=== PATIENT | male | born 1965 | race Caucasian/White ===

== ENCOUNTER 2018-01-17 10:28 | Emergency (ER) | payer OTHER ==
--- NOTE | 2018-01-17 12:21 | RAD REPORT ---
EXAM DESCRIPTION: CT - Stone Protocol - 01/17/2018 12:05 pm CLINICAL HISTORY: Left-sided abdominal pain, left-sided flank pain COMPARISON: None. TECHNIQUE: Axial 5 mm thick images were obtained without oral or IV contrast. The [id number] span s the entirety of the system partially obscuring uppermost abdomen and lung bases. All CT scans are performed using dose optimization technique as appropriate and may include automated exposure control or mA/KV adjustment according to patient size. FINDINGS: Mild hydronephrosis of the pelvis, calices and proximal ureter on the left secondary to a 6 millimeter stone. When viewed on a KUB projection the stone is along the left lateral margin of the L3-4 disc space. More distally the ureter is decompressed. No other obstructing or nonobstructing ca lculi on the left. No hydronephrosis or calculus on the right. Left kidney is mildly edematous with m ild perinephric stranding. No suspicious renal masses. Isodense masses and pyelonephritis are not exc luded on a stone protocol CT scan. No urinary bladder suspicious finding. Imaged portions of the liver, spleen and pancreas show no suspicious findings on non-contrast imaging . No gallbladder or biliary tree abnormality identified. No significant adrenal finding. No suspicious bowel findings. No hernia, mass or bulky lymphadenopathy noted. No free air, free fluid or inflammatory stranding. No acute bony abnormality. IMPRESSION: Mild left-sided hydronephrosis secondary to a 6 millimeter proximal left ureter stone. When viewed from a KUB projection, the stone localizes to the left lateral margin L3-4 disc space. Isodense masses and pyelonephritis are not excluded on stone protocol technique.
[2018-01-17 12:27] LABS: Urine Blood 2+ (NEG); Urine Glucose NEGATIVE (NEG); Urine Protein NEGATIVE (NEG); Urine Specific Gravity 1.025 (1.005-1.030)
[2018-01-17 12:38] LABS: Potassium 4.3 mEq/L (3.6-5.0)
[2018-01-17 12:42] LABS: Urine Bacteria <20 /HPF (NONE SEEN); Urine Culture Reflex Order NOT NEEDED
[2018-01-17 12:44] LABS: Albumin 4.5 g/dL (3.2-5.5); Bilirubin Direct 0.2 mg/dL (0-0.2); Bilirubin Total 1.3 mg/dL (0.3-1.2); Protein, Total 7.4 g/dL (6.0-8.3)
[2018-01-17 13:00] LABS: Absolute Lymphocytes (CBC) 0.6 K/uL (0.7-4.9); Absolute Monocytes 0.4 K/uL (0.1-1.3); Absolute Neutrophil 8.8 K/uL (1.8-8.0); Basophils % 0.3 % (0-1.3); Eosinophils % 0.1 % (0-4.4); Hematocrit 47.7 % (39.6-49.0); MCV 89.4 fL (80-100); MPV 8.5 fL (7.6-11.3); RBC Red Blood Cell Count 5.33 M/uL (4.33-5.43)
--- NOTE | 2018-01-17 13:13 | ER ---
Nurse's Notes [facility] Name: Chris Thomas Age: 52 yrs Sex: Male : 1965 Arrival Date: 01/17/2018 Time: 10:32 Bed 12 Private MD: Diagnosis: Hydronephrosis with renal and ureteral calculous obstruction Presentation: 01/17 10:40 Presenting complaint: Patient states: 2 days ago, i started having L back pain and hj started becomes nausea; today it started throbbing again at work; denies injury to the area; denies radiating pain; denies fever and chills;. Transition of care: patient was not received from another setting of care. Onset of symptoms was January 17, 2018. Care prior to arrival: None. 10:40 Method Of Arrival: Ambulatory 10:40 Acuity: ALINE 3 hj 10:50 Initial Sepsis Screen: Does the patient meet any 2 criteria? No. Patient's initial iw sepsis screen is negative. Does the patient have a suspected source of infection? No. Patient's initial sepsis screen is negative. Triage Assessment: 10:42 General: Appears in no apparent distress. uncomfortable, Behavior is calm, cooperative, hj appropriate for age. Pain: Complains of pain in left low back and left mid back Pain currently is 6 out of 10 on a pain scale. Musculoskeletal: Circulation, motion, and sensation intact. Historical: - Allergies: 10:42 Celebrex; hj - Home Meds: 10:42 None [Active]; hj - PMHx: 10:42 None; hj - PSHx: 10:42 Hernia repair; hj - Immunization history:: Adult Immunizations unknown. - Social history:: Smoking status: . Screenin:30 Abuse screen: Denies threats or abuse. Denies injuries from another. Nutritional aj1 screening: No deficits noted. Tuberculosis screening: No symptoms or risk factors identified. 13:55 Fall Risk None identified. iw Assessment: 11:30 General: Appears in no apparent distress. uncomfortable, Behavior is calm, cooperative, aj1 appropriate for age. Pain: Complains of pain in left mid back and left low back Pain does not radiate. Neuro: Level of Consciousness is awake, alert, obeys commands, Oriented to person, place, time, situation, Speech is normal, Facial symmetry appears normal. Cardiovascular: Patient's skin is warm and dry. Respiratory: Airway is patent Respiratory effort is even, unlabored, Respiratory pattern is regular, symmetrical. GI: No signs and/or symptoms were reported involving the gastrointestinal system. : No signs and/or symptoms were reported regarding the genitourinary system. Denies burning with urination, urinary frequency, urgency. EENT: No signs and/or symptoms were reported regarding the EENT system. Derm: No signs and/or symptoms reported regarding the dermatologic system. Skin is pink, warm \T\ dry. normal. Musculoskeletal: No signs and/or symptoms reported regarding the musculoskeletal system. Circulation, motion, and sensation intact. 12:34 Reassessment: Patient appears in no apparent distress at this time. Patient and/or iw family updated on plan of care and expected duration. Pain level reassessed. Patient is alert, oriented x 3, equal unlabored respirations, skin warm/dry/pink. Vital Signs: 10:43 BP 128 / 88; Pulse 85; Resp 18; Temp 98.2(TE); Pulse Ox 99% on R/A; Weight 81.65 kg; hj Height 5 ft. 9 in. (175.26 cm); Pain 7/10; 10:43 Body Mass Index 26.58 (81.65 kg, 175.26 cm) ED Course: 10:32 Patient arrived in ED. mr 10:42 Triage completed. hj 10:43 Arm band placed on right wrist. hj 11:30 Christian Mays PA is PHCP. jr8 11:30 Lloyd Aldridge MD is Attending Physician. 8 11:30 Lucia Tavera, RN is Primary Nurse. aj1 11:30 Patient has correct armband on for positive identification. Bed in low position. Call aj1 light in reach. Side rails up X 1. 11:30 No provider procedures requiring assistance completed. aj1 11:45 Urine collected: clean catch specimen, albert colored. dh3 11:46 Initial lab(s) drawn, by me, sent to lab. Inserted saline lock: 20 gauge in left aj1 antecubital area, using aseptic technique. Blood collected. 12:05 CT Stone Protocol In Process Unspecified. EDMS 12:15 Report given to Jamila Anglin RN. aj1 12:31 Primary Nurse role handed off by Lucia Tavera, MARYLOU iw 12:31 Derrek, Sobeida, RN is Primary Nurse. iw 13:09 Oh Archer MD is Referral Physician. jr8 13:55 IV discontinued, intact, bleeding controlled, No redness/swelling at site. Pressure iw dressing applied. Administered Medications: No medications were administered Outcome: 13:12 Discharge ordered by . jr8 13:55 Discharged to home ambulatory. iw 13:55 Condition: good 13:55 Discharge instructions given to patient, Instructed on discharge instructions, follow up and referral plans. medication usage, Demonstrated understanding of instructions, follow-up care, medications, Prescriptions given X 3. 13:58 Patient left the ED. iw Signatures: Dispatcher [employer] EDMS Lucia Tavera RN RN aj1 Sandy Rahman mr Sobeida Anglin, RN RN iw Christian Mays PA PA jr8 Ceasar Jara RN RN Radha Govea 3 Corrections: (The following items were deleted from the chart) 10:44 10:43 Pulse 85bpm; Resp 18bpm; Pulse Ox 99% RA; Temp 98.2F Temporal; 81.65 kg; Height 5 hj ft. 9 in.; BMI: 26.5; Pain 7/10; hj
--- NOTE | 2018-01-17 13:13 | EDPHYS ---
Physician Documentation [facility] Name: Chris Thomas Age: 52 yrs Sex: Male : 1965 Arrival Date: 01/17/2018 Time: 10:32 Bed 12 Private MD: ED Physician Lloyd Aldridge HPI: 01/17 13:01 This 52 yrs old Male presents to ER via Ambulatory with complaints of Back jr8 Pain. 13:01 The patient presents with pain that is acute. jr8 13:02 The patient complains of pain in the left flank. The pain does not radiate. Onset: The jr8 symptoms/episode began/occurred acutely, 2 day(s) ago. Modifying factors: The symptoms are alleviated by nothing. the symptoms are aggravated by nothing. Associated signs and symptoms: The patient has no apparent associated signs or symptoms. Severity of pain: At its worst the pain was moderate in the emergency department the pain has improved moderately. The patient has not experienced similar symptoms in the past. The patient has not recently seen a physician. Historical: - Allergies: 10:42 Celebrex; hj - Home Meds: 10:42 None [Active]; hj - PMHx: 10:42 None; hj - PSHx: 10:42 Hernia repair; hj - Immunization history:: Adult Immunizations unknown. - Social history:: Smoking status: . ROS: 13:02 Eyes: Negative for injury, pain, redness, and discharge, ENT: Negative for injury, jr8 pain, and discharge, Neck: Negative for injury, pain, and swelling, Cardiovascular: Negative for chest pain, palpitations, and edema, Respiratory: Negative for shortness of breath, cough, wheezing, and pleuritic chest pain, Abdomen/GI: Negative for abdominal pain, nausea, vomiting, diarrhea, and constipation, MS/Extremity: Negative for injury and deformity, Skin: Negative for injury, rash, and discoloration, Neuro: Negative for headache, weakness, numbness, tingling, and seizure. 13:02 Back: Positive for flank pain. Exam: 13:02 Eyes: Pupils equal round and reactive to light, extra-ocular motions intact. Lids and jr8 lashes normal. Conjunctiva and sclera are non-icteric and not injected. Cornea within normal limits. Periorbital areas with no swelling, redness, or edema. ENT: Nares patent. No nasal discharge, no septal abnormalities noted. Tympanic membranes are normal and external auditory canals are clear. Oropharynx with no redness, swelling, or masses, exudates, or evidence of obstruction, uvula midline. Mucous membranes moist. Neck: Trachea midline, no thyromegaly or masses palpated, and no cervical lymphadenopathy. Supple, full range of motion without nuchal rigidity, or vertebral point tenderness. No Meningismus. Cardiovascular: Regular rate and rhythm with a normal S1 and S2. No gallops, murmurs, or rubs. Normal PMI, no JVD. No pulse deficits. Respiratory: Lungs have equal breath sounds bilaterally, clear to auscultation and percussion. No rales, rhonchi or wheezes noted. No increased work of breathing, no retractions or nasal flaring. Abdomen/GI: Soft, non-tender, with normal bowel sounds. No distension or tympany. No guarding or rebound. No evidence of tenderness throughout. Skin: Warm, dry with normal turgor. Normal color with no rashes, no lesions, and no evidence of cellulitis. MS/ Extremity: Pulses equal, no cyanosis. Neurovascular intact. Full, normal range of motion. Neuro: Awake and alert, GCS 15, oriented to person, place, time, and situation. Cranial nerves II-XII grossly intact. Motor strength 5/5 in all extremities. Sensory grossly intact. Cerebellar exam normal. Normal gait. 13:02 Back: pain, is absent, ROM is normal, normal spinal alignment noted, CVA tenderness, that is mild, is noted on the left, vertebral tenderness, is not appreciated. Vital Signs: 10:43 BP 128 / 88; Pulse 85; Resp 18; Temp 98.2(TE); Pulse Ox 99% on R/A; Weight 81.65 kg; hj Height 5 ft. 9 in. (175.26 cm); Pain 7/10; 10:43 Body Mass Index 26.58 (81.65 kg, 175.26 cm) MDM: 11:30 Patient medically screened. jr8 13:09 Data reviewed: vital signs, nurses notes, lab test result(s), radiologic studies, CT jr8 scan. Data interpreted: Pulse oximetry: on room air is 99 %. Interpretation: normal. Counseling: I had a detailed discussion with the patient and/or guardian regarding: the historical points, exam findings, and any diagnostic results supporting the discharge/admit diagnosis, lab results, radiology results, the need for outpatient follow up, a urologist, to return to the emergency department if symptoms worsen or persist or if there are any questions or concerns that arise at home. Physician consultation: Oh Archer MD was called at 13:09, was contacted at 13:09, regarding consult, patient's condition, and will see patient in office. 01/17 11:39 Order name: Urine Dipstick--Ancillary (enter results); Complete Time: 12:29 [facility] 01/17 11:53 Order name: Basic Metabolic Panel; Complete Time: 12:58 [facility] 01/17 11:53 Order name: CBC with Diff; Complete Time: 15:44 [facility] 01/17 11:53 Order name: Creatinine for Radiology; Complete Time: 12:58 [facility] 01/17 11:53 Order name: Hepatic Function; Complete Time: 12:58 [facility] 01/17 11:53 Order name: Urine Microscopic Only; Complete Time: 12:58 [facility] 01/17 11:53 Order name: IV Saline Lock; Complete Time: 12:04 [facility] 01/17 11:53 Order name: Labs collected and sent; Complete Time: 12:04 [facility] 01/17 11:53 Order name: Urine Dipstick-Ancillary (obtain specimen); Complete Time: 12:05 [facility] 01/17 11:53 Order name: CT Stone Protocol; Complete Time: 12:29 [facility] 01/17 13:01 Order name: CBC Smear Scan; Complete Time: 15:44 EDMS Administered Medications: No medications were administered Disposition: 01/17/18 13:12 Discharged to Home. Impression: Hydronephrosis with renal and ureteral calculous obstruction. - Condition is Stable. - Discharge Instructions: Kidney Stones, Hydronephrosis. - Prescriptions for Tylenol- Codeine #3 300-30 mg Oral Tablet - take 2 tablet by ORAL route every 6 hours As needed; 30 tablet. Zofran 4 mg Oral Tablet - take 1 tablet by ORAL route every 12 hours As needed; 20 tablet. Flomax 0.4 mg Oral Capsule, Sust. Release 24 hr - take 1 capsule by ORAL route once daily 1/2 hour following the same meal each day; 30 capsule. - Work release form, Medication Reconciliation Form, Thank You Letter, Antibiotic Education, Prescription Opioid Use form. - Follow up: Oh Archer MD; When: 2 - 3 days; Reason: Recheck today's complaints, Continuance of care, Re-evaluation by your physician. - Problem is new. - Symptoms have improved. Addendum: 01/20/2018 06:11 Co-signature as Attending Physician, Lloyd Aldridge MD Available for consultation at p s1 all times. . Signatures: Dispatcher [employer] Sobeida Ralph RN RN Christian Meza PA PA jr8 Ceasar Jara RN RN hj Singer, Phillip, MD MD ps1
[2018-01-17 13:54] LABS: Blood Morphology Comment NOT SEEN (NOT SEEN); Platelet Estimate ADEQ; Urine White Blood Cell Casts OK
== END 2018-01-17 13:58 | disposition home or self-care (01) ==
LOC: ER 10:28
DX: N13.2 Hydronephrosis with renal and ureteral calculous obstruction (principal); Z88.8 Allergy status to other drugs, medicaments and biological substances
CPT/HCPCS: 36415; 74176; 76377; 80048; 80076; 81003; 81015; 85025; 99284

== ENCOUNTER 2018-01-20 12:09 | Inpatient (IN) | payer OTHER ==
--- NOTE | 2018-01-20 14:24 | RAD REPORT ---
EXAM DESCRIPTION: RAD - Abdomen W Erect - 01/20/2018 1:43 pm CLINICAL HISTORY: Abdominal pain FINDINGS: The bowel gas pattern is unremarkable with large amount of stool throughout the colon. Air within the left upper quadrant near the left hemidiaphragm most likely lies within bowel. If the patient has clinical symptoms to suggest pneumoperitoneum then a decubitus abdominal plain film right -side-up would be recommended. The exam was discussed with Doe Tee in the emergency room prior to t his dictation A 5 millimeter calculus lies within the mid left ureter between the left transverse processes of L3 a nd L4
[2018-01-20 14:47] LABS: Absolute Lymphocytes (CBC) 0.7 K/uL (0.7-4.9); Absolute Monocytes 0.8 K/uL (0.1-1.3); Absolute Neutrophil 6.9 K/uL (1.8-8.0); Basophils % 0.6 % (0-1.3); Eosinophils % 0.9 % (0-4.4); Hematocrit 42.7 % (39.6-49.0); Lymphocytes % 8.5 % (15.3-44.8); MCH 30.4 pg (27.0-35.0); MCV 87.1 fL (80-100); MPV 7.7 fL (7.6-11.3); Monocytes % 9.5 % (3.3-12.3)
[2018-01-20 14:55] LABS: Potassium 3.9 mEq/L (3.6-5.0)
[2018-01-20] MEDS ORDERED: NA CHLORIDE 0.9% 1,000 ML ONE (15:49)
[2018-01-20 16:01] LABS: Urine Blood TRACE (NEG); Urine Glucose NEGATIVE (NEG); Urine Protein 2+ (NEG); Urine Specific Gravity 1.025 (1.005-1.030); Urine pH 6.5 (5.0-7.0)
[2018-01-20 16:12] LABS: Urine Amorphous Sediment 1+ /HPF (NONE SEEN); Urine Bacteria <20 /HPF (NONE SEEN); Urine Culture Reflex Order NOT NEEDED; Urine Mucus 2+ /HPF (NONE SEEN); Urine RBC <5 /HPF (NONE SEEN)
--- NOTE | 2018-01-20 18:06 | ER ---
Nurse's Notes [facility] Name: Chris Thomas Age: 52 yrs Sex: Male : 1965 Arrival Date: 01/20/2018 Time: 12:11 Bed 15 Private MD: Diagnosis: Calculus of ureter-Left;Acute kidney failure Presentation: 01/20 12:14 Presenting complaint: Patient states: I was dx with kidney stone on Monday and I la1 have been taking tylenol with codiene and it is making me constipated. Last BM monday. Transition of care: patient was not received from another setting of care. Onset of symptoms was January 20, 2018. Initial Sepsis Screen: Does the patient meet any 2 criteria? No. Patient's initial sepsis screen is negative. Does the patient have a suspected source of infection? No. Patient's initial sepsis screen is negative. Care prior to arrival: None. 12:14 Method Of Arrival: Ambulatory la1 12:14 Acuity: ALINE 3 la1 Historical: - Allergies: 12:15 Celebrex; la1 - PMHx: 12:15 Asthma; la1 - Immunization history:: Adult Immunizations up to date. - Social history:: Smoking status: Patient/guardian denies using tobacco. Screenin:18 Abuse screen: Denies threats or abuse. Denies injuries from another. Nutritional ph screening: No deficits noted. Tuberculosis screening: No symptoms or risk factors identified. Fall Risk None identified. Assessment: 12:45 General: Appears in no apparent distress. comfortable, slender, well groomed, Behavior ph is calm, cooperative, appropriate for age, Denies fever. Pain: Complains of pain in right lower quadrant and left lower quadrant. Neuro: Level of Consciousness is awake, alert, obeys commands, Oriented to person, place, time, situation. Cardiovascular: Capillary refill < 3 seconds Patient's skin is warm and dry. Respiratory: Airway is patent Respiratory effort is even, unlabored, Respiratory pattern is regular, symmetrical. GI: Abdomen is flat, non-distended, Bowel sounds present X 4 quads. Abdomen is tender to palpation in right lower quadrant and left lower quadrant Reports constipation, last BM on Mon. : Reports pain in suprapubic area Denies inability to void. Derm: Skin is intact, is fragile, Skin is pink, warm \T\ dry. Musculoskeletal: Circulation, motion, and sensation intact. Range of motion: intact in all extremities. 14:00 Reassessment: Patient appears in no apparent distress at this time. Patient and/or ph family updated on plan of care and expected duration. Pain level reassessed. Patient is alert, oriented x 3, equal unlabored respirations, skin warm/dry/pink. 15:16 Reassessment: Patient appears in no apparent distress at this time. Patient and/or ph family updated on plan of care and expected duration. Pain level reassessed. Patient is alert, oriented x 3, equal unlabored respirations, skin warm/dry/pink. Pt resting quietly, awaiting lab results, VSS, will continue to monitor. 15:52 Reassessment: Pt. ambulated to the restroom to try to urinate. rb1 17:00 Reassessment: Patient appears in no apparent distress at this time. Patient and/or ph family updated on plan of care and expected duration. Pain level reassessed. Patient is alert, oriented x 3, equal unlabored respirations, skin warm/dry/pink. Pt resting quietly, provider waiting to speak to urologist to determine if pt is to be admitted or will follow up in office. 17:52 Reassessment: Patient appears in no apparent distress at this time. No changes from ph previously documented assessment. Patient and/or family updated on plan of care and expected duration. Pain level reassessed. Patient is alert, oriented x 3, equal unlabored respirations, skin warm/dry/pink. 20:07 Reassessment: Patient appears in no apparent distress at this time. Patient and/or tl2 family updated on plan of care and expected duration. Pain level reassessed. Patient is alert, oriented x 3, equal unlabored respirations, skin warm/dry/pink. Awaiting room assignment. Hospitalist at bedside. General: Appears in no apparent distress. comfortable. 21:09 Reassessment: Patient appears in no apparent distress at this time. Patient and/or tl2 family updated on plan of care and expected duration. Pain level reassessed. Patient is alert, oriented x 3, equal unlabored respirations, skin warm/dry/pink. Pt stable and ready for transport to floor. Vital Signs: 12:15 BP 124 / 84; Pulse 105; Resp 16; Temp 98.0(TE); Pulse Ox 100% on R/A; Weight 81.65 kg; la1 Height 5 ft. 9 in. (175.26 cm); 13:00 BP 120 / 72; Pulse 94; Resp 16; Pulse Ox 98% on R/A; ph 14:00 BP 128 / 80; Pulse 87; Resp 18; Pulse Ox 97% on R/A; ph 15:17 BP 124 / 84; Pulse 80; Resp 16; Pulse Ox 97% on R/A; ph 16:45 BP 127 / 82; Pulse 78; Resp 18; Pulse Ox 99% on R/A; ph 18:10 BP 122 / 78; Pulse 81; Resp 18; Pulse Ox 97% on R/A; ph 20:07 BP 139 / 86; Pulse 87; Resp 18; Pulse Ox 99% on R/A; tl2 12:15 Body Mass Index 26.58 (81.65 kg, 175.26 cm) la1 ED Course: 12:11 Patient arrived in ED. as 12:15 Triage completed. la1 12:15 Arm band placed on left wrist. la1 12:19 Sha Tee PA is PHCP. cp 12:19 Lloyd Aldridge MD is Attending Physician. cp 12:25 Charlette Abrams, MARYLOU is Primary Nurse. ph 13:37 Patient moved to radiology via wheelchair. ag1 13:37 X-ray completed. Patient tolerated procedure well. ag1 13:37 XRAY Abdomen With Erect In Process Unspecified. EDMS 14:40 Initial lab(s) drawn, by id, sent to lab. Inserted saline lock: 20 gauge in right 3 antecubital area, using aseptic technique. Blood collected. 15:19 Patient has correct armband on for positive identification. Bed in low position. Call ph light in reach. Pulse ox on. NIBP on. 15:58 Urine collected: clean catch specimen, albert colored. 3 18:04 Essie Díaz MD is Hospitalizing Provider. cp 18:25 IV discontinued, intact, bleeding controlled, No redness/swelling at site. Pressure ph dressing applied. 19:35 Inserted saline lock: 20 gauge in left antecubital area, using aseptic technique. tl2 19:46 No provider procedures requiring assistance completed. Patient admitted, IV remains in ph place. 21:09 Patient admitted, IV remains in place. tl2 Administered Medications: 19:35 Drug: NS 0.9% 1000 ml Route: IV; Rate: 1 bolus; Site: left antecubital; tl2 21:10 Follow up: IV Status: Completed infusion; IV Intake: 1000ml tl2 19:35 Drug: NS 0.9% 1000 ml Route: IV; Rate: 125 ml/hr; Site: left antecubital; tl2 21:10 Follow up: IV Status: Infusion continued upon admission tl2 Intake: 21:10 IV: 1000ml; Total: 1000ml. tl2 Outcome: 18:05 Decision to Hospitalize by Provider. cp 21:09 Admitted to Med/surg accompanied by tech, via wheelchair, room 214, with chart, Report tl2 called to MARYLOU Sandra 21:09 Condition: stable 21:09 Discharge instructions given to patient, Instructed on the need for admit. 21:11 Patient left the ED. tl2 Signatures: Dispatcher [employer] EDMS Klarissa Nieves Lee RN RN la1 Charlette Abrams RN RN Evelyn Ortega 1 Sha Tee, JAMAL PA cp Gabriella Keane, RN RN rb1 Marcy Kam RN RN tl2 Radha Govea 3 Corrections: (The following items were deleted from the chart) 21:09 21:09 Reassessment: Patient appears in no apparent distress at this time. Patient tl2 and/or family updated on plan of care and expected duration. Pain level reassessed. Patient is alert, oriented x 3, equal unlabored respirations, skin warm/dry/pink. Pt verbalized understanding of discharge instructions, need for follow up and prescription usage Patient states feeling better. tl2
--- NOTE | 2018-01-20 18:06 | EDPHYS ---
Physician Documentation [facility] Name: Chris Thomas Age: 52 yrs Sex: Male : 1965 Arrival Date: 01/20/2018 Time: 12:11 Bed 15 Private MD: ED Physician Lloyd Aldridge HPI: 01/20 12:35 This 52 yrs old Male presents to ER via Ambulatory with complaints of cp Constipation. 12:35 The patient presents with constipation. Onset: The symptoms/episode began/occurred cp gradually, reports last BM 4 days ago. The symptoms do not radiate. Associated signs and symptoms: Pertinent negatives: nausea and vomiting, anorexia, blood in stools, diarrhea, dysuria, fever, testicular pain, flatulence . Historical: - Allergies: 12:15 Celebrex; la1 - PMHx: 12:15 Asthma; la1 - Immunization history:: Adult Immunizations up to date. - Social history:: Smoking status: Patient/guardian denies using tobacco. ROS: 12:40 Constitutional: Negative for body aches, chills, fever, poor PO intake. cp 12:40 Eyes: Negative for injury, pain, redness, and discharge. cp 12:40 ENT: Negative for drainage from ear(s), ear pain, sore throat, difficulty swallowing, difficulty handling secretions. 12:40 Cardiovascular: Negative for chest pain, edema, palpitations. 12:40 Respiratory: Negative for cough, shortness of breath, wheezing. 12:40 Abdomen/GI: Positive for abdominal pain, constipation, Negative for nausea, vomiting, diarrhea, anorexia, black/tarry stool, rectal bleeding, flatulence. 12:40 Back: Positive for flank pain, on the left. 12:40 : Negative for urinary symptoms. 12:40 Skin: Negative for cellulitis, rash. 12:40 Neuro: Negative for altered mental status, headache, weakness. 12:40 All other systems are negative. Exam: 12:48 Head/Face: Normocephalic, atraumatic. cp 12:48 Constitutional: The patient appears in no acute distress, alert, awake, non-diaphoretic, non-toxic, well developed, well nourished. 12:48 Eyes: Periorbital structures: appear normal, Pupils: equal, round, and reactive to light and accomodation, Extraocular movements: intact throughout, Conjunctiva: normal, no exudate, no injection, Sclera: no appreciated abnormality, Lids and lashes: appear normal, bilaterally. 12:48 ENT: External ear(s): are unremarkable, Ear canal(s): are normal, clear, TM's: bulging, is not appreciated, bilaterally, dullness, bilaterally, erythema, is not appreciated, bilaterally, Nose: is normal, Mouth: is normal, Posterior pharynx: is normal, airway is patent, no erythema, no exudate. 12:48 Neck: ROM/movement: is normal, is supple, without pain, no range of motions limitations, no nuchal rigidity. 12:48 Chest/axilla: Inspection: normal, Palpation: is normal, no crepitus, no tenderness. 12:48 Cardiovascular: Rate: tachycardic, Rhythm: regular. 12:48 Respiratory: the patient does not display signs of respiratory distress, Respirations: normal, no use of accessory muscles, no retractions, no splinting, no tachypnea, labored breathing, is not present, Breath sounds: are clear throughout, no decreased breath sounds, no stridor, no wheezing. 12:48 Abdomen/GI: Inspection: abdomen appears normal, Bowel sounds: active, Palpation: soft, in all quadrants, mild abdominal tenderness, in all quadrants, rebound tenderness, is not appreciated, voluntary guarding, is not appreciated, involuntary guarding, is not appreciated. 12:48 Back: pain, that is mild, of the left mid back, ROM is normal. Vital Signs: 12:15 BP 124 / 84; Pulse 105; Resp 16; Temp 98.0(TE); Pulse Ox 100% on R/A; Weight 81.65 kg; la1 Height 5 ft. 9 in. (175.26 cm); 13:00 BP 120 / 72; Pulse 94; Resp 16; Pulse Ox 98% on R/A; ph 14:00 BP 128 / 80; Pulse 87; Resp 18; Pulse Ox 97% on R/A; ph 15:17 BP 124 / 84; Pulse 80; Resp 16; Pulse Ox 97% on R/A; ph 16:45 BP 127 / 82; Pulse 78; Resp 18; Pulse Ox 99% on R/A; ph 18:10 BP 122 / 78; Pulse 81; Resp 18; Pulse Ox 97% on R/A; ph 20:07 BP 139 / 86; Pulse 87; Resp 18; Pulse Ox 99% on R/A; tl2 12:15 Body Mass Index 26.58 (81.65 kg, 175.26 cm) la1 MDM: 12:30 Patient medically screened. cp 14:30 Differential diagnosis: bowel obstruction, Ureterolithiasis, urinary tract infection, cp acute kidney failure, sepsis. 16:25 Data reviewed: vital signs, nurses notes, lab test result(s), radiologic studies, plain cp films, and as a result, I will admit patient. 16:29 Physician consultation: Oh Archer MD was called at 16:29, left message on cp voicemail. 17:55 Physician consultation: Oh Archer MD was called at 17:55, left msg on voicemail. cp 18:02 Physician consultation: Essie Díaz MD was called at 18:02, was contacted at 18:02, regarding admission, to the medical/surgical unit. patient's condition. 01/20 12:34 Order name: Urine Microscopic Only; Complete Time: 16:20 cp 01/20 16:20 Interpretation: Normal except: SQEPI 5-10. cp 01/20 14:28 Order name: CBC with Diff; Complete Time: 15:38 cp 01/20 12:34 Order name: XRAY Abdomen With Erect; Complete Time: 14:26 cp 01/20 14:28 Order name: BMP; Complete Time: 15:38 cp 01/20 16:01 Order name: Urine Dipstick--Ancillary (enter results); Complete Time: 16:20 eb 01/20 16:20 Interpretation: Normal except: UKET 1+; UBLD TRACE; UPROT 2+. cp 01/20 12:34 Order name: Urine Dipstick-Ancillary (obtain specimen); Complete Time: 15:58 cp Administered Medications: 19:35 Drug: NS 0.9% 1000 ml Route: IV; Rate: 1 bolus; Site: left antecubital; tl2 21:10 Follow up: IV Status: Completed infusion; IV Intake: 1000ml tl2 19:35 Drug: NS 0.9% 1000 ml Route: IV; Rate: 125 ml/hr; Site: left antecubital; tl2 21:10 Follow up: IV Status: Infusion continued upon admission tl2 Disposition: 04/21/18 18:05 Hospitalization ordered by Essie Díaz for Observation. Preliminary diagnosis are Calculus of ureter - Left, Acute kidney failure. - Bed requested for Telemetry/MedSurg (observation). - Status is Observation. tl2 - Condition is Stable. - Problem is new. - Symptoms have improved. UTI on Admission? No Signatures: Dispatcher [employer] EDMS Bhargavi Conner RN RN Anderson Chavez RN RN la1 Sha Tee PA PA cp Knox, Taylor, RN RN tl2 Destiny Lyon
[2018-01-20] MEDS ORDERED: ONDANSETRON 4 MG/2 ML VIAL IV PRN (20:14)
[2018-01-20] MEDS ORDERED: ACETAMINOPHEN 500 MG TAB PO PRN (20:14)
[2018-01-20] MEDS ORDERED: POLYETHYL GLY 3350 17 GM/DOSE PO ONE (21:18)
[2018-01-20] MEDS: NA CHLORIDE 0.9% 1,000 ML IV SCH (21:42)
[2018-01-21 05:13] LABS: Absolute Lymphocytes (CBC) 0.8 K/uL (0.7-4.9); Absolute Monocytes 0.8 K/uL (0.1-1.3); Absolute Neutrophil 5.5 K/uL (1.8-8.0); Basophils % 0.5 % (0-1.3); Eosinophils % 2.1 % (0-4.4); Hematocrit 40.3 % (39.6-49.0); Lymphocytes % 11.1 % (15.3-44.8); MCH 30.4 pg (27.0-35.0); MPV 8.1 fL (7.6-11.3); Monocytes % 11.5 % (3.3-12.3); RBC Red Blood Cell Count 4.58 M/uL (4.33-5.43)
[2018-01-21 05:35] LABS: Albumin 3.1 g/dL (3.2-5.5); Bilirubin Total 1.4 mg/dL (0.3-1.2); Magnesium 1.8 mg/dL (1.8-2.5); Potassium 3.8 mEq/L (3.6-5.0)
--- NOTE | 2018-01-21 05:53 | P.HP ---
Certification for Inpatient Patient admitted to: Observation With expected LOS: <2 Midnights Practitioner: I am a practitioner with admitting privileges, knowledge of patient current condition, hospital course, and medical plan of care. Services: Services provided to patient in accordance with Admission requirements found in Title 42 Section 412.3 of the Code of Federal Regulations Patient History Date of Service: 01/21/18 Reason for admission: cholelithiasis History of Present Illness: Mr Thomas is a 52 years old male with history of Asthma, who start about 4 days ago with left flank pain. The pain was recurrent, colicky like, 8-9/10 of intensity. He denied nausea or vomiting. On 01/17/18, he came to ED for evaluation. CT abdomen was remarkable for mild left-sided hydronephrosis secondary to a 6 millimeter proximal left ureter stone. The patient then was discharged home from ED with the instruction to see Urologist. Today he came back to ED because is still symptomatic, and also now is constipated, since he has been taking Tylonol 3 for pain. He denied any fever or chills. KUB still shows ureteral stone. Allergies celecoxib [From Celebrex] Allergy (Verified 01/20/18 21:24) Hives/Rash Home Medications: Albuterol Inhaler [Ventolin Inhaler*] 1 puff IH PRN PRN 01/20/18 Fluticasone/Salmeterol [Advair Hfa 230-21 Mcg Inhaler] 2 puff IH BID 01/20/18 - Past Medical/Surgical History Has patient received pneumonia vaccine in the past: No Diabetic: No -: ASTHMA -: APPENDECTOMY -: HERNIA REPAIR - Family History Family History: Reviewed- Non-Contributory - Social History Smoking Status: Never smoker Alcohol use: Yes CD- Drugs: No Caffeine use: Yes Place of Residence: Home Review of Systems 10-point ROS is otherwise unremarkable Physical Examination - Vital Signs Temperature: 98.8 F Blood Pressure: 133/67 Pulse: 75 Respirations: 18 Pulse Ox (%): 95 - Physical Exam General: Alert, In no apparent distress HEENT: Atraumatic, PERRLA, Mucous membr. moist/pink, EOMI, Sclerae nonicteric Neck: Supple, 2+ carotid pulse no bruit, No LAD, Without JVD or thyroid abnormality Respiratory: Clear to auscultation bilaterally, Normal air movement Cardiovascular: Regular rate/rhythm, Normal S1 S2 Gastrointestinal: Normal bowel sounds, Tenderness (left CVA tender to palpation. ) Musculoskeletal: No tenderness Integumentary: No rashes Neurological: Normal speech, Normal strength at 5/5 x4 extr, Normal tone, Normal affect Lymphatics: No axilla or inguinal lymphadenopathy - Studies Laboratory Data (last 24 hrs) 01/20/18 14:37: Sodium 135, Potassium 3.9, BUN 22 H, Creatinine 1.95 H, Glucose 102 01/20/18 14:37: WBC 8.5, Hgb 14.9, Hct 42.7, Plt Count 200 D Assessment and Plan - Problems (Diagnosis) (1) Hydronephrosis Current Visit: Yes Status: Acute Qualifiers: Hydronephrosis type: with ureteral calculous obstruction Qualified Code(s) : N13.2 - Hydronephrosis with renal and ureteral calculous obstruction (2) Ureteral stone Current Visit: Yes Status: Acute (3) Asthma Current Visit: Yes Status: Acute Qualifiers: Asthma severity: mild Asthma persistence: intermittent Asthma complication type: unspecified Qualified Code(s): J45.20 - Mild intermittent asthma, uncomplicated (4) Acute renal injury Current Visit: Yes Status: Acute - Plan Mr Thomas will be admitted to the hospital due to mild left hydronephrosis secondary to an ureteral stone. There is no signs of infection at the moment, normal WBC, no fever, however his renal function is abnormal. Will consult Dr Archer, will keep NPO in AM for possible cystoscopy. Will five stool softer for constipation. - Advance Directives Does patient have a Living Will: Yes Does patient have a Durable POA for Healthcare: Yes - Code Status/Comfort Care Code Status Assessed: Yes Code Status: Full Code
[2018-01-21] MEDS ORDERED: MAGNESIUM SULFATE 1 gm IVPB 1 GM/100 ML BAG IV ONE (06:01)
[2018-01-21] MEDS ORDERED: POTASSIUM 25 MEQ EFFERV TAB PO ONE (06:04)
[2018-01-21] MEDS ORDERED: KCL 20 MEQ/100 mL IVPB 20 MEQ/100 ML BAG IV SCH (07:00)
[2018-01-21] MEDS: NA CHLORIDE 0.9% 1,000 ML IV SCH ×3 (10:02→18:47)
[2018-01-21] MEDS ORDERED: MINERAL OIL ENEMA 135 ML BTL PR PRN (11:06)
[2018-01-21] MEDS: MAGNESIUM HYDROXIDE 8% 30 ML PO PRN ×2 (12:47→20:25)
--- NOTE | 2018-01-21 17:05 | PN ---
Subjective: Currently, the patient lying in bed. He looks comfortable. He continued to have some l eft flank pain. He is waiting for Urology to be seen. No nausea. No vomiting. No blood in the uri ne. No blood in the stool. Appetite is average. Objective: VITAL SIGNS: Currently vital signs; blood pressure is 133/67, respiratory rate 18, pulse 75, temperature 98.8, saturating 95% on room air. General: He is fully alert, oriented x3. He does not look in any distress. HEENT: Atraumatic, normocephalic. PERRLA. Oral mucosa is moist. Neck: Supple. No JVD. No carotid bruits. Chest: Clear to auscultation. Good air entry. Heart: Regular rate and rhythm. S1, S2 normal. No gallop or murmur. Abdomen: Soft, nontender. No masses. No hepatosplenomegaly. Positive bowel sounds. He does have slight tenderness in the left flank. Extremities: No clubbing, cyanosis, or edema. No calf tenderness. Neurologic: Grossly intact. Laboratory Data: Today, CBC within normal. CMP was normal except for kidney with a creatinine of 1. 79, BUN of 23. Total bilirubin 1.4. Albumin is 3.1. Assessment And Plan: 1.Left renal hydronephrosis with mild renal insufficiency. CAT scan showed ureteral stone obstructi on. Continue IV hydration, pain control. Urology consult is pending. 2.Ureteral stone, pending Urology consult evaluation. 3.Elevated liver function tests with bilirubin 1.4, borderline. We will recheck labs in a.m. 4.Renal insufficiency, improving. I will increase IV fluid to 150 cc/hour from 50 currently, that i s started in the emergency room. 5.Symptomatic treatment for pain. 6.Constipation improved with stool softeners. RUFINO/FORTUNATO Voice ID: [id number] Report ID: [id number]
--- NOTE | 2018-01-21 17:41 | CON ---
History Of Present Illness: This is a pleasant 52-year-old gentleman, who was in good state of health until last week. He started having left flank pain. He came to the emergency room on 01/17, was given Tylenol No. 3, sent home. He says since then he has been very constipated. The pain returned yesterday. He came back, which showed that the stone was approximately at the same location L3 to L4 on the left as seen on the CT scan on 01/17, also seen on the KUB on . He was admitted for renal colic and I was consulted. He has had no fevers , no pains. He does have a history of asthma. The patient is from [place]. He takes albuterol and fluticasone for his asthma. He did have some mild hydronephrosis on the left side from a 5 to 6 mm stone at the level of L3 to L4. Allergies: TO CELEBREX CAUSES HIVES AND RASH. Home Medications: Ventolin inhaler and fluticasone/salmeterol 2 puffs b.i.d. p.r.n. Past Medical History: The patient has no history of diabetes, positive history of asthma. Past Surgical History: Appendectomy, hernia repair. Family History: Noncontributory. Social History: Never smoked. Some alcohol use. No drug use. Some caffeine use. He resides at home. He is living by himself. His family is in [place]. 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 Review of Systems: Ten-point review of systems, otherwise unremarkable. Physical Examination: Vital Signs: Afebrile, stable. Latest vital signs showed temperature 98.8, pulse 75, respirations 18, blood pressure 133/67, 95% sats. HEENT: Atraumatic, normocephalic. Lungs: Clear. Heart: S1, S2. Abdomen: Soft, nontender. Exam: Both testicles were descended. He is circumcised. No lesions. Extremities: Normal range of motion. Laboratory Data: White count 8.4, H and H is 13.9 and 40.3, platelet 189,000. Chemistry; sodium 135, potassium 2.8, chloride 103, carbon dioxide 26, BUN 23, creatinine 1.8, when he was admitted was approximately 2.0. GFR estimated to be 40. Glucose 94, calcium 89, magnesium 1.8, total bilirubin 1.4. AST 15, ALT 15, alkaline phosphatase 74, total protein 6.0, albumin 3.1, globulin 2.9. Urine pH 6.5, specific gravity 1025, ketone 1+, blood trace, nitrite negative, esterase negative. Assessment And Plan: A pleasant 52-year-old gentleman with 5 to 6 mm stone between L3 to L4 on the left causing pain and hydronephrosis. He is admitted for pain control. He is very constipated from Tylenol No. 3. We are going to give him MOM around the clock and Fleet's enema around the clock. Continue to hydrate and ambulate and make him n.p.o. Monday night for surgery. Orders have been written for the consent. I gave him general information on alternatives and risks and he wishes to proceed. I told him to take 24 hours off after anesthesia before he starts driving or return to work. He can return to work approximately on . CARIDAD/FORTUNATO Voice ID: [id number] Report ID: [id number] AMELIA
[2018-01-21] MEDS: Morphine 2 MG/2 ML SYR IV PRN ×2 (19:04→22:49)
[2018-01-22] MEDS: NA CHLORIDE 0.9% 1,000 ML IV SCH ×4 (00:46→23:20)
[2018-01-22] MEDS: MAGNESIUM HYDROXIDE 8% 30 ML PO SCH ×4 (00:46→17:11)
[2018-01-22 04:55] LABS: Absolute Lymphocytes (CBC) 0.9 K/uL (0.7-4.9); Absolute Monocytes 0.9 K/uL (0.1-1.3); Absolute Neutrophil 5.6 K/uL (1.8-8.0); Basophils % 0.4 % (0-1.3); Eosinophils % 1.7 % (0-4.4); Hematocrit 39.4 % (39.6-49.0); Lymphocytes % 11.4 % (15.3-44.8); MCH 30.3 pg (27.0-35.0); MCV 87.1 fL (80-100); MPV 7.6 fL (7.6-11.3); Monocytes % 12.2 % (3.3-12.3); RBC Red Blood Cell Count 4.52 M/uL (4.33-5.43)
[2018-01-22 05:02] LABS: Blood Morphology Comment NOT SEEN (NOT SEEN); Platelet Estimate ADEQ
[2018-01-22 05:41] LABS: Albumin 2.9 g/dL (3.2-5.5); Bilirubin Total 1.1 mg/dL (0.3-1.2); Magnesium 2.1 mg/dL (1.8-2.5); Potassium 4.2 mEq/L (3.6-5.0); Protein, Total 5.7 g/dL (6.0-8.3)
--- NOTE | 2018-01-22 16:58 | P.PN ---
Date of Service: 01/22/18 Subjective: Pt seen and examined at bedside with RN. Currently Pt is sitting ont he chair. Awaiting surgical procedure now. No nausea. No vomiting. No blood in the urine. No blood in the stool. Appetite is average. Objective: VITAL SIGNS: Currently vital signs General: He is fully alert, oriented x3. He does not look in any distress. HEENT: Atraumatic, normocephalic. PERRLA. Oral mucosa is moist. Neck: Supple. No JVD. No carotid bruits. Chest: Clear to auscultation. Good air entry. Heart: Regular rate and rhythm. S1, S2 normal. No gallop or murmur. Abdomen: Soft, nontender. No masses. No hepatosplenomegaly. Positive bowel sounds. He does have slight tenderness in the left flank. Extremities: No clubbing, cyanosis, or edema. No calf tenderness. Neurologic: Grossly intact. Laboratory Data: 01/22/18 04:25: WBC 7.6, RBC 4.52, Hgb 13.7, Hct 39.4 L, MCV 87.1, MCH 30.3, MCHC 34.8, RDW 13.3, Plt Count 223, MPV 7.6, Neutrophils % 74.3 H, Lymphocytes % 11.4 L, Monocytes % 12.2, Eosinophils % 1.7, Basophils % 0.4, Absolute Neutrophils 5.6, Segmented Neutrophils 70, Absolute Lymphocytes 0.9, Lymphocytes 19, Monocytes 10, Absolute Monocytes 0.9, Eosinophils 1, Absolute Eosinophils 0.1, Absolute Basophils 0.0, Morphology Comment Not seen 01/22/18 04:25: Sodium 137, Potassium 4.2, Chloride 102, Carbon Dioxide 29, BUN 16, Creatinine 1.74 H, Estimated GFR 41 L, Glucose 115, Calcium 8.9, Magnesium 2.1, Total Bilirubin 1.1, AST 20, ALT 21, Alkaline Phosphatase 84, Serum Total Protein 5.7 L, Albumin 2.9 L, Globulin 2.8, Albumin/Globulin Ratio 1.0 L Assessment And Plan: 1. Left renal hydronephrosis with mild renal insufficiency. -CT scan showed ureteral stone obstruction. -Continue IV hydration, pain control. -Urology consulted. Surgical procedure brian. 2. Renal insufficiency, improving - IV fluid at 75 cc/hour. Pt states increasing it more causes him to have pain GI and DVT PPX Dispo: Awaiting Surgical Procedure
--- NOTE | 2018-01-22 18:59 | PN ---
Subjective: The patient is feeling well. Had some pain, but it is bearable. Objective: Vital Signs: 98.2, pulse 78, respirations 18, BP 120/72, and pulse ox 97%. Assessment: The patient has 5-6 mm stone on the left by L3-L4 causing pain and hydronephrosis. Plan: Plan is for left ESWL in a.m. The patient knows all the risks and benefits and wishes to proc eed. Informed consent has been obtained and he will be n.p.o. after midnight. CARIDAD/FORTUNATO Voice ID: [id number] Report ID: [id number]
[2018-01-23] MEDS: NA CHLORIDE 0.9% 1,000 ML IV SCH ×2 (04:28→12:40)
[2018-01-23] MEDS: MAGNESIUM HYDROXIDE 8% 30 ML PO SCH ×2 (05:16)
--- NOTE | 2018-01-23 07:39 | RAD REPORT ---
EXAM DESCRIPTION: RAD - Abdomen 1 View (KUB) - 01/23/2018 7:12 am CLINICAL HISTORY: Left ureteral calculus COMPARISON: KUB January 20, CT study January 17 FINDINGS: Left mid ureter calculus is still present positioned between the transverse process of L3 and L4. No additional renal calculi seen. Phleboliths seen in the left side pelvis. Bowel gas pattern is nonspecific. No suspicious finding. No significant bony findings IMPRESSION: No change in positioning of the left mid ureter calculus.
[2018-01-23] MEDS ORDERED: Ringers Lactate 1,000 ML IV ONE (09:20)
[2018-01-23] MEDS ORDERED: MIDAZOLAM HCL 2 MG/2 ML INJ ONE ×2 (09:47→09:55)
[2018-01-23] MEDS ORDERED: PROPOFOL 200 MG/20 ML VIAL IV ONE (09:54)
[2018-01-23] MEDS ORDERED: FENTANYL CITR 100 MCG/2 ML ONE (09:55)
[2018-01-23] MEDS ORDERED: LIDOCAINE 1% MPF 5 ML VIAL ONE (09:55)
[2018-01-23] MEDS: GENTAMICIN 80 MG/100 ML BAG 80 MG/100 ML BAG IV ONE ×2 (09:58→10:00)
[2018-01-23] MEDS ORDERED: KETOROLAC 30 MG/ML INJ ONE (10:11)
[2018-01-23] MEDS ORDERED: ONDANSETRON 4 MG/2 ML VIAL ONE (10:11)
[2018-01-23] MEDS ORDERED: MAGNESIUM HYDROXIDE 8% 30 ML PO SCH (10:23)
--- NOTE | 2018-01-23 18:02 | P.DS ---
Admission Date: 01/21/18 Discharge Date: 01/23/18 Disposition: ROUTINE DISCHARGE Discharge Condition: GOOD Reason for Admission: cholelithiasis Consultations: Urology Procedures: Lithotripsy with stent placement - Problems (1) Ureteral stone Onset Date: 01/22/18 Status: Acute (2) Hydronephrosis Onset Date: 01/22/18 Status: Acute Qualifiers: Hydronephrosis type: with ureteral calculous obstruction Qualified Code(s) : N13.2 - Hydronephrosis with renal and ureteral calculous obstruction (3) Acute renal injury Onset Date: 01/22/18 Status: Acute (4) Asthma Onset Date: 01/22/18 Status: Chronic Qualifiers: Asthma severity: mild Asthma persistence: intermittent Asthma complication type: unspecified Qualified Code(s): J45.20 - Mild intermittent asthma, uncomplicated Brief History of Present Illness: Mr Thomas is a 52 years old male with history of Asthma, who start about 4 days ago with left flank pain. The pain was recurrent, colicky like, 8-9/10 of intensity. He denied nausea or vomiting. On 01/17/18, he came to ED for evaluation. CT abdomen was remarkable for mild left-sided hydronephrosis secondary to a 6 millimeter proximal left ureter stone. The patient then was discharged home from ED with the instruction to see Urologist. Today he came back to ED because is still symptomatic, and also now is constipated, since he has been taking Tylonol 3 for pain. He denied any fever or chills. KUB still shows ureteral stone. Hospital Course: Overall during the hospital stay patient remained stable Patient initially was admitted to the hospital for left ureter stone. Urology was consulted. Neurology recommended that patient be kept on IV fluids NPO and pain management. Patient was then taken to surgery for left ESWL. Patient tolerated procedure well and did well overall after as well. Pt was able to tolerate PO and ambulate and thus was given discharge instructions to go home with. Patient was given Tylenol 3. And Flomax as prescription and was asked to follow up with urology in about 2 weeks post discharge. Vital Signs/Physical Exam: Temp Pulse Resp BP Pulse Ox 98.2 F 81 18 118/76 98 01/23/18 16:00 01/23/18 16:00 01/23/18 16:00 01/23/18 16:00 01/23/18 16:00 General: Alert, In no apparent distress HEENT: Atraumatic, PERRLA, EOMI Neck: Supple, JVD not distended Respiratory: Clear to auscultation bilaterally, Normal air movement Cardiovascular: Regular rate/rhythm, Normal S1 S2 Gastrointestinal: Normal bowel sounds, No tenderness Musculoskeletal: No tenderness Integumentary: No rashes Neurological: Normal speech, Normal tone, Normal affect Lymphatics: No axilla or inguinal lymphadenopathy Laboratory Data at Discharge: WBC 7.6 K/uL (4.3-10.9) 01/22/18 04:25 Hgb 13.7 g/dL (13.6-17.9) 01/22/18 04:25 Hct 39.4 % (39.6-49.0) L 01/22/18 04:25 Plt Count 223 K/uL (152-406) 01/22/18 04:25 Sodium 137 mEq/L (135-145) 01/22/18 04:25 Potassium 4.2 mEq/L (3.6-5.0) 01/22/18 04:25 BUN 16 mg/dL (6-20) 01/22/18 04:25 Creatinine 1.74 mg/dL (0.61-1.24) H 01/22/18 04:25 Glucose 115 mg/dL (65-120) 01/22/18 04:25 Magnesium 2.1 mg/dL (1.8-2.5) 01/22/18 04:25 Total Bilirubin 1.1 mg/dL (0.3-1.2) 01/22/18 04:25 AST 20 IU/L (10-42) 01/22/18 04:25 ALT 21 IU/L (10-60) 01/22/18 04:25 Alkaline Phosphatase 84 IU/L (42-121) 01/22/18 04:25 Home Medications: Albuterol Inhaler [Ventolin Inhaler*] 1 puff IH PRN PRN 01/20/18 Fluticasone/Salmeterol [Advair Hfa 230-21 Mcg Inhaler] 2 puff IH BID 01/20/18 Tamsulosin [Flomax] 0.4 mg PO BEDTIME #21 cap 01/23/18 New Medications: Tamsulosin [Flomax] 0.4 mg PO BEDTIME #21 cap Patient Discharge Instructions: Please f/u with Dr Archer in 2 week post discharge. New medication. Flomax. Tramadol Diet: Regular Activity: Ad keanu Followup: Oh Archer MD [ACTIVE - CAN ADMIT] - 1-2 Weeks
== END 2018-01-23 16:51 | disposition home or self-care (01) | DRG 691 ==
LOC: ER 12:09 → ERHOLD 18:10 → 2ND 20:29 → OBSVTOIN 01-21 18:10
PROVIDERS: ADMIT Internal Medicine; ATTEND Family Medicine
PROC: 0TF7XZZ Fragmentation in Left Ureter, External Approach (ICD-10-PCS; principal; 2018-01-23 13:30)
DX: N13.2 Hydronephrosis with renal and ureteral calculous obstruction (principal); N17.9 Acute kidney failure, unspecified; J45.20 Mild intermittent asthma, uncomplicated; K59.00 Constipation, unspecified
CPT/HCPCS: 36415; 50590; 74018; 74019; 80048; 80053; 81003; 81015; 83735; 85025; 96360; 96361; 99285; G0378; J1580; J2250; J2270; J2405; J3010; J3475; J7030